=== PATIENT | male | born 1965 | race Two or more races ===

== ENCOUNTER 2019-06-21 13:43 | Outpatient (CLI) | payer OTHER ==
[~2019-06-21] VITALS: Ht 157.5 cm; Wt 79.8 kg
[2019-06-21] MEDS ORDERED: ZYRTEC10 MG ORAL (15:38)
[2019-06-21] MEDS ORDERED: FLUTICASONE PRO16 G1 NASAL (15:38)
[2019-06-21] MEDS ORDERED: JANUMET 50-1,01 EACH ORAL (15:38)
[2019-06-21] MEDS ORDERED: FISH OIL 1,2001 EAC2 PO (15:38)
[2019-06-21 15:39] VITALS: BP 128/78
--- NOTE | 2019-06-21 20:30 | Consultation ---
DATE OF CONSULTATION: 06/21/2019 CHIEF COMPLAINT: Screening colonoscopy evaluation. PAST MEDICAL HISTORY: 1. Diabetes. 2. Allergic rhinitis. PAST SURGICAL HISTORY: Eye surgery. MEDICATIONS: She is on Janumet, fish oil, cetirizine. FAMILY HISTORY: Noncontributory. SOCIAL HISTORY: The patient drinks socially. No drug abuse. No tobacco abuse. ALLERGIES: No known drug allergies. REVIEW OF SYSTEMS: A 10-point system was performed, no acute findings. PHYSICAL EXAMINATION: VITAL SIGNS: Temperature 98.3, blood pressure 122/77, pulse 87, respiratory rate 20. HEENT: Normocephalic and atraumatic. Sclerae anicteric. NECK: Supple. No evidence of obvious lymphadenopathy. CARDIOVASCULAR: Regular rate and rhythm. Plus S1 and S2. No obvious murmur. LUNGS: Clear to auscultation bilaterally. ABDOMEN: Positive bowel sounds. Soft and nontender. No rebound. No guarding. No peritoneal sign. EXTREMITIES: No cyanosis. No clubbing. No edema. ASSESSMENT AND PLAN: The patient is a 54-year-old male with diabetes, allergic rhinitis referred to us for screening colonoscopy. The patient was given instruction and prep for colonoscopy. The procedure was explained to him, the risks and benefits, he agreed so we will plan to get authorization and schedule it as soon as authorization is obtained. Thomas Quijano M.D. DR: Ricardo JOB#: [id number] CC:
== END 2019-06-21 15:43 | disposition home or self-care (01) ==
LOC: PAN 13:43
DX: E11.9 Type 2 diabetes mellitus without complications (principal); J30.9 Allergic rhinitis, unspecified
CPT/HCPCS: 99202